=== PATIENT | male | born 1955 | race Caucasian/White ===

== ENCOUNTER 2019-11-14 12:30 | Outpatient (RCR) | payer OTHER, SELFPAY | END 2019-11-14 23:59 | disposition home or self-care (01) | LOC: ANHAUDIO 12:30 | PROVIDERS: PCP Family Medicine; Visit Provider Family Medicine | DX: Z46.1 Encounter for fitting and adjustment of hearing aid (principal) | CPT/HCPCS: 99199 ==

== ENCOUNTER 2020-04-24 07:06 | Outpatient (CLI) | payer MEDICARE, MEDICAID, SELFPAY ==
--- NOTE | ~2020-04-24 | MR_ITS ---
EXAMINATION: MR lumbar spine wo con DATE: 04/24/2020 08:17 INDICATION: Lumbar radiculopathy and chronic low back pain. TECHNIQUE: Magnetic resonance imaging (MRI) of the lumbar spine was performed without intravenous con trast. Sequences included sagittal T2-weighted FSE, sagittal T2-weighted FS FSE, sagittal T1-weighted FSE, and axial T2-weighted FSE. COMPARISON: None FINDINGS: Alignment is normal. Lumbar vertebral body heights are normal. Chronic mild anterior wedging at T11 a nd minimal anterior wedging at T12. Fibrofatty degenerative endplate changes along the anterior infer ior endplate of T11. Mild fibrovascular degenerative endplate changes along the anterior inferior end plate of L1. Marrow signal is otherwise normal. Slight disc desiccation and mild disc height loss at T11-T12 and minimal disc height loss at L1-L2, L2-L3, L3-L4 and L5-S1. The conus medullaris terminate s at L1. There is normal signal in the caudal spinal cord. Paravertebral soft tissues are unremarkabl e. The following disc levels are specifically discussed: L1-L2: Disc is mildly bulging with superimposed annular fissure and left paracentral disc extrusion w ith disc material extending up to 3 mm cephalad to the level of the inferior endplate of L1. There is mild bilateral facet joint osteoarthritis. There is no neural foraminal stenosis. There is mild cent ral canal stenosis. L2-L3: Disc is mildly bulging with annular fissure and small central disc extrusion with disc materia l extending a couple millimeters cephalad and caudal to the level of the endplates. There is mild lópez ateral facet joint osteoarthritis. There is mild right and minimal left neural foraminal stenosis. Th ere is mild central canal stenosis. L3-L4: Disc is mildly bulging with superimposed annular fissure and small disc extrusion with disc ma terial extending couple millimeter caudal to the level of the superior endplate of L4. There is mild bilateral facet joint osteoarthritis. There is mild bilateral neural foraminal stenosis. There is mil d central canal stenosis. L4-L5: Disc is mildly bulging. There is mild right and mild to moderate left facet joint osteoarthrit is. There is mild right and mild to moderate left neural foraminal stenosis. There is mild central ca nal stenosis. L5-S1: Annular fissure and broad-based disc extrusion extending from subarticular zone to subarticula r zone with disc material extending couple millimeter caudal to the level of the superior endplate of S1. There is mild bilateral facet joint osteoarthritis. There is mild bilateral neural foraminal ila nosis. There is no central canal stenosis. IMPRESSION: 1. No significant interval change in mild lumbar spondylosis. Reviewed, dictated and finalized at location A.
== END 2020-04-24 07:07 | disposition home or self-care (01) ==
LOC: CHSIMG 07:11
PROVIDERS: PCP Family Medicine; Visit Provider Nurse Practitioner Adult Health
DX: M54.5 Low back pain (principal)
CPT/HCPCS: 72148

== ENCOUNTER 2020-09-01 14:04 | Outpatient (CLI) | payer MEDICARE, SELFPAY ==
[2020-09-01 14:17] LABS: Basophils Absolute Auto 0.07 K/mm3 (0.00-0.10); Basophils Percent Auto 0.6 % (0.0-1.0); Eosinophils Absolute Auto 0.31 K/mm3 (0.02-0.50); Eosinophils Percent Auto 2.9 % (1.0-6.0); Hematocrit 39.8 % (37.0-46.0); Hemoglobin 13.4 g/dL (12.4-15.3); Immature Granulocyte Absolute 0.06 K/mm3 (0.00-0.00); Immature Granulocyte Percent A 0.6 % (0.0-0.0); Lymphocytes Absolute Auto 2.57 K/mm3 (1.10-4.50); Lymphocytes Percent Auto 23.7 % (18.0-42.0); Mean Corpuscular HGB Conc 33.7 g/dL (32.0-36.0); Mean Corpuscular Hemoglobin 31.6 pg (27.0-31.0); Mean Corpuscular Volume 93.9 fL (78.0-102.0); Mean Platelet Volume 8.9 fl (8.7-11.0); Monocytes Absolute Auto 0.75 K/mm3 (0.10-0.90); Monocytes Percent Auto 6.9 % (2.0-11.0); Neutrophils Absolute Auto 7.1 K/mm3 (1.7-7.2); Neutrophils Percent Auto 65.3 % (50.0-70.0); Platelet Count Result 363 K/mm3 (150-420); Red Blood Count 4.24 M/mm3 (4.70-6.10); Red Cell Distribution Width 13.5 % (11.6-14.4); White Blood Count 10.9 K/mm3 (4.8-10.8)
[2020-09-01 14:38] LABS: Alanine Aminotransferase 33 U/L (16-63); Albumin Level 4.1 g/dL (3.4-5.0); Alkaline Phosphatase 132 U/L (46-116); Anion Gap 11 mmol/L (8-16); Aspartate Amino Transferase 21 U/L (15-37); Bilirubin,Total 0.5 mg/dL (0.00-1.00); Blood Urea Nitrogen 22 mg/dL (7-18); Calcium 9.8 mg/dL (8.5-10.1); Carbon Dioxide 26 mmol/L (21-32); Chloride 103 mmol/L (98-108); Cholesterol 128 mg/dL (0-200); Estimated Glomerular Filt Rate > 60; Glucose 131 mg/dL (70-99); HDL Direct 42 mg/dL (40-60); LDL Cholesterol Calculated 58 mg/dL (<130); Osmolality Calculated 295 mOsm/kg (285-295); Sodium 140 mmol/L (136-145); Triglycerides 140 mg/dL (0-150)
== END 2020-09-01 14:05 | disposition home or self-care (01) ==
LOC: CHSLAB 14:07
PROVIDERS: PCP Family Medicine; Visit Provider Family Medicine
DX: E78.5 Hyperlipidemia, unspecified (principal); I10 Essential (primary) hypertension
CPT/HCPCS: 36415; 80053; 80061; 85025

== ENCOUNTER 2021-11-01 14:33 | Outpatient (NON) | payer MEDICARE, SELFPAY | END 2021-11-01 14:34 | disposition home or self-care (01) | LOC: CHSLAB 14:37 | PROVIDERS: Visit Provider Family Medicine | DX: L82.1 Other seborrheic keratosis (principal) | CPT/HCPCS: 88305 ==

== ENCOUNTER 2021-11-08 15:18 | Outpatient (CLI) | payer MEDICARE, SELFPAY ==
[2021-11-08 15:38] LABS: Hematocrit 37.3 % (37.0-46.0); Hemoglobin 12.6 g/dL (12.4-15.3); Mean Corpuscular HGB Conc 33.8 g/dL (32.0-36.0); Mean Corpuscular Hemoglobin 32.5 pg (27.0-31.0); Mean Corpuscular Volume 96.1 fL (78.0-102.0); Mean Platelet Volume 9.1 fl (8.7-11.0); Platelet Count Result 341 K/mm3 (150-420); Red Blood Count 3.88 M/mm3 (4.70-6.10); Red Cell Distribution Width 13.8 % (11.6-14.4); White Blood Count 11.7 K/mm3 (4.8-10.8)
[2021-11-08 16:26] LABS: Alanine Aminotransferase 30 U/L (16-63); Albumin Level 3.9 g/dL (3.4-5.0); Alkaline Phosphatase 128 U/L (46-116); Anion Gap 6 mmol/L (8-16); Aspartate Amino Transferase 19 U/L (15-37); Bilirubin,Total 0.6 mg/dL (0.00-1.00); Blood Urea Nitrogen 17 mg/dL (7-18); Calcium 8.6 mg/dL (8.5-10.1); Carbon Dioxide 28 mmol/L (21-32); Chloride 103 mmol/L (98-108); Estimated Glomerular Filt Rate 54; Glucose 107 mg/dL (70-99); Osmolality Calculated 285 mOsm/kg (285-295); Potassium 4.3 mmol/L (3.5-5.1); Sodium 137 mmol/L (136-145); Total Protein 7.2 g/dL (6.4-8.2)
== END 2021-11-08 15:19 | disposition home or self-care (01) ==
PROVIDERS: PCP Family Medicine; Visit Provider Family Medicine
DX: R42 Dizziness and giddiness (principal); E11.9 Type 2 diabetes mellitus without complications
CPT/HCPCS: 36415; 80053; 84443; 85027

== ENCOUNTER 2021-11-12 09:23 | Outpatient (CLI) | payer MEDICARE, MEDICAID, SELFPAY ==
--- NOTE | ~2021-11-12 | MR_ITS ---
EXAMINATION: MR brain/brain stem wo con DATE: 11/12/2021 10:03 INDICATION: Disequilibrium. TECHNIQUE: Magnetic resonance imaging (MRI) of the brain and brainstem was performed without intraven ous contrast. COMPARISON: None. FINDINGS: There is an old infarct in right frontal lobe. There is an old infarct in the right caudate nucleus. There are scattered areas of nonspecific increased T2-weighted signal intensity in the cere bral white matter and smiley. There is no intracranial hemorrhage, acute infarction, or abnormal intrac ranial mass lesion. The ventricles are normal in size. There is mild mucosal thickening in the parana lucy sinuses. There are likely changes of ocular lens replacement surgeries. The mastoid air cells are normal. IMPRESSION: 1. 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 2. Moderate nonspecific cerebral white matter disease and pontine disease, which likely represents ch ronic small vessel ischemic disease. Reviewed, dictated and finalized at location A. IMPRESSION: 1. 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 2. Moderate nonspecific cerebral white matter disease and pontine disease, whic h likely represents chronic small vessel ischemic disease.
== END 2021-11-12 09:24 | disposition home or self-care (01) ==
LOC: CHSIMG 09:24
PROVIDERS: PCP Family Medicine; Visit Provider Family Medicine
DX: R42 Dizziness and giddiness (principal)
CPT/HCPCS: 70551

== ENCOUNTER 2021-12-01 12:29 | Outpatient (CLI) | payer MEDICARE, MEDICAID, SELFPAY ==
--- NOTE | ~2021-12-01 | US_ITS ---
EXAMINATION: US carotid duplex BI DATE: 12/01/2021 13:42 INDICATION: Cerebral infarction with disequilibrium. Carotid atherosclerosis. TECHNIQUE: Grayscale, color Doppler, and pulsed Doppler images of the cervical carotid arteries were obtained. The degree of vessel stenosis is placed in one of the following categories: normal, <50%, 5 0-69%, >=70% but less than near-occlusion, near-occlusion, or total occlusion. Note that percent sten osis relative to normal distal artery lumen diameter is indirectly measured from velocity measurement s as described by Singh, et al. Radiology 2003; 229:340-346. COMPARISON: Chest CT dated 05/24/2017 FINDINGS: RIGHT: The right common carotid artery (CCA) peak systolic velocity (PSV) is 77 cm/s. The right internal car otid artery (ICA) PSV is 102 cm/s. The right ICA end-diastolic velocity (EDV) is 34 cm/s. The right I CA/CCA PSV ratio is 1.3. Grayscale and color Doppler images yield an estimate of <50% diameter reduct ion from plaque in the ICA. The external carotid artery (ECA) PSV is 124 cm/s. There is antegrade suni w in the right vertebral artery. 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 LEFT: The left CCA PSV is 84 cm/s. The left ICA PSV is 91 cm/s. The left ICA EDV is 28 cm/s. The left ICA/C CA PSV ratio is 1.1. Grayscale and color Doppler images yield an estimate of <50% diameter reduction from plaque in the ICA. The ECA PSV is 85 cm/s. There is antegrade flow in the left vertebral artery. IMPRESSION: 1. <50% stenosis in the right internal carotid artery. 2. <50% stenosis in the left internal carotid artery. 3. Patent right common carotid right subclavian artery bypass graft. Reviewed, dictated and finalized at location A.
== END 2021-12-01 12:30 | disposition home or self-care (01) ==
LOC: CHSIMG 12:31
PROVIDERS: PCP Family Medicine; Visit Provider Family Medicine
DX: I63.9 Cerebral infarction, unspecified (principal)
CPT/HCPCS: 93880

== ENCOUNTER 2022-01-06 13:08 | Outpatient (CLI) | payer MEDICARE, MEDICAID, SELFPAY ==
--- NOTE | 2022-01-06 13:22 | ECHO_ITS ---
Patient Info Name: Antolin Swartz Age: 66 years : 1955 Gender: Male Ht: 66 in Wt: 165 lbs BSA: 1.88 m2 HR: 79 bpm BP: 135 / 62 mmHg Heart Rhythm: Sinus Rhythm Technical Quality: Fair Exam Date: 01/06/2022 2:09 PM Exam Location: [facility] Patient Status: Outpatient Admit Date: 01/06/2022 Staff Ordering Physician: Zia Hensley DO Publication Distributor: Emily Cruz RDCS Attending Provider: Zia Hensley DO Referring Physician: Ayden CRAVEN; Exam Type: CA echo doppler color flow Study Info Indications - cerebral infarctin.unspecified Complete two-dimensional, color flow and Doppler transthoracic echocardiogram is performed. Summary 1. Complete two-dimensional, color flow and Doppler transthoracic echocardiogram is performed. 2. Left ventricular chamber dimension is normal. 3. Left ventricular systolic function is normal, estimated at 65-70%. 4. The left ventricular diastolic function is grade I diastolic dysfunction. 5. E/e' 11 is mildly elevated. 6. There is trace tricuspid valve regurgitation. 7. No pulmonary hypertension, estimated pulmonary arterial systolic pressure is 29 mmHg. 8. There is mild pulmonic regurgitation. Left Ventricle E/e' 11 is mildly elevated. Left ventricular chamber dimension is normal. Left ventricular systolic function is normal, estimated at 65-70%. The left ventricular diastolic function is grade I diastolic dysfunction. Right Ventricle Right ventricular systolic function is normal and with normal TAPSE 2.4 cm. Right ventricular chamber dimension is normal. Left Atria Left atrial chamber dimension is normal. Right Atria Right atrial chamber dimension is normal. Aortic Valve The aortic valve is trileaflet. There is no aortic valve stenosis. There is no aortic valve regurgitation. Pulmonic Valve There is mild pulmonic regurgitation. Mitral Valve There is no mitral valve stenosis. There is no mitral valve regurgitation. Tricuspid Valve There is trace tricuspid valve regurgitation. No pulmonary hypertension, estimated pulmonary arterial systolic pressure is 29 mmHg. Pericardium/Pleural There is no pericardial effusion. Inferior Vena Cava Normal inferior vena cava with >50% collapse upon inspiration consistent with normal right atrial pressure, 5 mmHg. Aorta The aortic root size at the sinus of Valsalva is normal. Left Ventricular Outflow Tract Name Value Normal LVOT 2D LVOT Diameter 2.0 cm LVOT Doppler LVOT Peak Velocity 93 cm/s LVOT Peak Gradient 3 mmHg LVOT Mean Gradient 2 mmHg LVOT VTI 18 cm LVOT VTI/AV VTI Ratio 0.9 LVOT Stroke Volume 59 ml Pulmonic Valve Name Value Normal RVOT Doppler RV
== END 2022-01-06 13:09 | disposition home or self-care (01) ==
LOC: CHSIMG 13:11
PROVIDERS: PCP Family Medicine; Visit Provider Family Medicine
DX: I63.9 Cerebral infarction, unspecified (principal)
CPT/HCPCS: 93306

== ENCOUNTER 2022-03-24 13:47 | Outpatient (CLI) | payer MEDICARE, MEDICAID, SELFPAY ==
--- NOTE | ~2022-03-24 | CT_ITS ---
EXAMINATION: CT lung screening DATE: 03/24/2022 14:13 INDICATION: History of nicotine dependence TECHNIQUE: Computed tomography (CT) of the chest was performed without intravenous contrast. The dose -length product was 100.92 mGy-cm. Automated exposure control and iterative reconstruction technique were employed. COMPARISON: None FINDINGS: No significant pleural or pericardial effusion. There is atherosclerosis of the aorta and c oronary arteries. No thoracic lymphadenopathy. Heart size is normal. There are calcified granulomas o f the spleen. There is calcified granuloma of the left lower lobe. No endobronchial lesions. Mild emp hysema. No focal airspace consolidation. No pneumothorax. There is a 2 mm right upper lobe nodule ant eriorly. Moderate thoracic spondylosis. No focal lytic or blastic lesions. IMPRESSION: 1. Lung-RADS category 2: Benign appearance or behavior. Continue annual screening with noncontrast lo w-dose chest CT in 12 months. Reviewed, dictated and finalized at location A. 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 Lung-RADS category 2: Benign appearance or behavior. Continue annual screeni ng with noncontrast low-dose chest CT in 12 months.
== END 2022-03-24 13:48 | disposition home or self-care (01) ==
LOC: CHSIMG 13:49
PROVIDERS: PCP Family Medicine; Visit Provider Family Medicine
DX: Z12.2 Encounter for screening for malignant neoplasm of respiratory organs (principal); Z87.891 Personal history of nicotine dependence; R05.9 Cough, unspecified; R06.02 Shortness of breath
CPT/HCPCS: 71271

== ENCOUNTER 2022-06-09 09:45 | Outpatient (CLI) | payer MEDICARE, SELFPAY ==
[2022-06-09 10:38] LABS: Alanine Aminotransferase 31 U/L (16-63); Albumin Level 3.7 g/dL (3.4-5.0); Alkaline Phosphatase 132 U/L (46-116); Anion Gap 11 mmol/L (8-16); Aspartate Amino Transferase 22 U/L (15-37); Bilirubin,Total 0.5 mg/dL (0.00-1.00); Blood Urea Nitrogen 17 mg/dL (7-18); Carbon Dioxide 24 mmol/L (21-32); Chloride 106 mmol/L (98-108); Cholesterol 101 mg/dL (0-200); Estimated Glomerular Filt Rate > 60; Glucose 128 mg/dL (70-99); HDL Direct 43 mg/dL (40-60); LDL Cholesterol Calculated 35 mg/dL (<130); Osmolality Calculated 295 mOsm/kg (285-295); Potassium 4.7 mmol/L (3.5-5.1); Sodium 141 mmol/L (136-145); Total Protein 6.9 g/dL (6.4-8.2); Triglycerides 114 mg/dL (0-150)
== END 2022-06-09 09:46 | disposition home or self-care (01) ==
LOC: CHSLAB 09:47
PROVIDERS: PCP Family Medicine; Visit Provider Internal Medicine Cardiovascular Disease
DX: E78.5 Hyperlipidemia, unspecified (principal)
CPT/HCPCS: 36415; 80053; 80061

== ENCOUNTER 2022-08-10 15:16 | Outpatient (RCR) | payer OTHER, SELFPAY ==
--- NOTE | 2022-08-10 16:19 | PTOPEVAL1 ---
Assessment and note entered by JT File, PT Evaluation Information Assessment Status Evaluation Diagnosis R shoulder pain, L shoulder pain Onset 08/04/22 Subjective Information patient reports he has RTC issues with the R shoulder. he reports he will notice it is painful and weak with increased use. he reports he has had no recent xray or MRI of the R shoulder. he reports he has increased pain in the R shoulder with lifting anyweight. he reports he has been working out in the yard today, but his shoulder is not too bad currently. he reports he has been having issues with the R shoulder for 4-5 years. he reports as of lately he has also has pain in the L shoulder with activities. Reported Pain Level Pain Score 0: Self Report Assessment PT Clinical Summary mr. vogt is a 67 yo man who presents to skilled PT for evaluation and treatment of bilateral shoulder pain. he presents today with signs and symptoms of bilateral RTC syndrome. he displays poor strength, poor rom, pain, and deficits in posture/postural awareness. he would do well to continue skilled PT to address his objective/ functional deficits and progress towards a return to his prior level functional activity performance /quality of life. Plan of Care Interventions Electrical Stimulation,Hot Pack/Cold Pack,Manual Therapy,Neuro Re-education,Patient/Caregiver Educati,Therapeutic Activities,Therapeutic Exercise,Ultrasound PT Services Indicated Yes Treatment Frequency and 3x weekly for 12 visits Duration These treatments will address the objective and functional deficits as defined above. The patient will be advanced safely and appropriately in order for the patient to progress towards his/her prior level of function. Additional exercises will be introduced and as well as a comprehensive home exercise program upon discharge, if needed, ?to ensure carryover of functional gains achieved in the clinic. This treatment plan has been reviewed and agreement upon by the patient.
--- NOTE | 2022-08-10 16:19 | OPREHPOC ---
Outpatient Therapy Plan of Care This is a Multidisciplinary Plan of Care that may contain components documented by all disciplines (PT, OT, and ST.) PT Problem 1 PT Problem #1 Knowledge Deficit PT Goal 1 Goal 1. independent and compliant with HEP to improve tolerance for continued skilled PT and exercises Target Visit 6 PT Problem 2 PT Problem #2 Pain PT Goal 1 Goal 1. decrease pain at worst in the bilateral shoulders to 4/10 or less Target Visit 12 PT Problem 3 PT Problem #3 Impaired Range of Motion PT Goal 1 Goal 1. improve bilateral shoulder arom flexion to 155 degrees 2. improve bilateral shoulder arom ER to 75 degrees or better 3. improve bilateral shoulder arom IR to 60 degrees or better Target Visit 12 PT Problem 4 PT Problem #4 Impaired Strength PT Goal 1 Goal 1. improve bilateral shoulder ER strength to 4/5 or better 2. improve remaining bilateral shoulder strength to 4+/5 or better Target Visit 12 PT Problem 5 PT Problem #5 Impaired Functional Mobil PT Goal 1 Goal 1. patient to achieve functional IR reach behind back to the lumbar spine with the R hand 2. patient to work on cars and yard for 2 hours at a time without limitation or rest 3. quick dash to display less than 20% functional deficits` Target Visit 12
--- NOTE | 2022-12-05 16:36 | PCPTNOTE ---
patient discharged due to completion of POC
== END 2022-08-24 23:59 | disposition home or self-care (01) ==
LOC: CHSPT 15:16
PROVIDERS: PCP Family Medicine; Visit Provider Family Medicine
DX: M25.811 Other specified joint disorders, right shoulder (principal)
CPT/HCPCS: 97014; 97110; 97161; G0283

== ENCOUNTER 2022-09-04 09:43 | Outpatient (CLI) | payer OTHER, SELFPAY ==
[2022-09-04 10:07] LABS: Basophils Absolute Auto 0.07 K/mm3 (0.00-0.10); Basophils Percent Auto 0.8 % (0.0-1.0); Eosinophils Absolute Auto 0.31 K/mm3 (0.02-0.50); Eosinophils Percent Auto 3.3 % (1.0-6.0); Hematocrit 37.4 % (37.0-46.0); Hemoglobin 12.9 g/dL (12.4-15.3); Immature Granulocyte Absolute 0.03 K/mm3 (0.00-0.00); Immature Granulocyte Percent A 0.3 % (0.0-0.0); Lymphocytes Percent Auto 19.4 % (18.0-42.0); Mean Corpuscular HGB Conc 34.5 g/dL (32.0-36.0); Mean Corpuscular Hemoglobin 33.2 pg (27.0-31.0); Mean Corpuscular Volume 96.4 fL (78.0-102.0); Mean Platelet Volume 8.7 fl (8.7-11.0); Monocytes Absolute Auto 0.74 K/mm3 (0.10-0.90); Neutrophils Absolute Auto 6.4 K/mm3 (1.7-7.2); Neutrophils Percent Auto 68.2 % (50.0-70.0); Platelet Count Result 341 K/mm3 (150-420); Red Blood Count 3.88 M/mm3 (4.70-6.10); Red Cell Distribution Width 14.3 % (11.6-14.4); White Blood Count 9.3 K/mm3 (4.8-10.8)
[2022-09-04 10:49] LABS: Alanine Aminotransferase 37 U/L (16-63); Albumin Level 3.5 g/dL (3.4-5.0); Alkaline Phosphatase 128 U/L (46-116); Anion Gap 11 mmol/L (8-16); Aspartate Amino Transferase 23 U/L (15-37); Bilirubin,Total 0.3 mg/dL (0.00-1.00); Blood Urea Nitrogen 19 mg/dL (7-18); Calcium 8.6 mg/dL (8.5-10.1); Carbon Dioxide 21 mmol/L (21-32); Chloride 105 mmol/L (98-108); Estimated Glomerular Filt Rate 58; Glucose 114 mg/dL (70-99); Lipase 30 U/L (16-77); Osmolality Calculated 287 mOsm/kg (285-295); Potassium 4.6 mmol/L (3.5-5.1); Sodium 137 mmol/L (136-145); Total Protein 6.3 g/dL (6.4-8.2)
[2022-09-04 10:51] LABS: Thyroid Stimulating Hormone Reflex 1.67 u/IU/mL (0.36-3.74)
[2022-09-04 10:52] LABS: CRP < 0.5 mg/dL (0.0-0.9)
== END 2022-09-04 09:44 | disposition home or self-care (01) ==
LOC: CHSLAB 09:46
PROVIDERS: PCP Family Medicine; Visit Provider Family Medicine
DX: E11.9 Type 2 diabetes mellitus without complications (principal); R10.9 Unspecified abdominal pain; K52.9 Noninfective gastroenteritis and colitis, unspecified
CPT/HCPCS: 36415; 80053; 83690; 84443; 85025; 86140

== ENCOUNTER 2022-09-05 09:25 | Outpatient (CLI) | payer OTHER, SELFPAY ==
[2022-09-05 09:51] LABS: Occult Blood Negative (Negative)
[2022-09-09 06:53] LABS: Neutral Fat, Stool Abnormal (Normal)
[2022-09-13 21:27] LABS: Pancreatic Elastase, Stool 404 mcg/g
[2022-09-14 22:43] LABS: Calprotectin, Stool 54 mcg/g
== END 2022-09-05 09:26 | disposition home or self-care (01) ==
LOC: CHSLAB 09:28
PROVIDERS: PCP Family Medicine; Visit Provider Family Medicine
DX: K52.9 Noninfective gastroenteritis and colitis, unspecified (principal)
CPT/HCPCS: 82272; 82438; 82653; 82705; 83993; 84302; 84311; 87045; 87427; 87449

== ENCOUNTER 2023-03-16 10:18 | Emergency (ER) | payer OTHER, SELFPAY ==
--- NOTE | ~2023-03-16 | XR_ITS ---
EXAMINATION: XR ribs BI 3V w CXR 2V INDICATION: Chest pain TECHNIQUE: PA and lateral views of the chest and 3 views of the bilateral ribs were obtained. COMPARISON: 03/02/2016 FINDINGS: The lungs are free of acute opacities. No pleural effusion or pneumothorax. The cardiomedia stinal silhouette is normal. There is advanced right and moderate left shoulder osteoarthritis. There is moderate thoracic spondylosis. There are acute posterior fractures of the left fourth and fifth r ibs. There is an acute anterolateral fracture of the left ninth rib. IMPRESSION: 1. Acute left rib fractures. 2. No acute cardiopulmonary abnormality. Reviewed, dictated and finalized at location B. 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
[2023-03-16 10:54] VITALS: BP 153/78; PULSE 86; RESP 18; TEMP 36.4; O2SAT 98
--- NOTE | 2023-03-16 11:51 | ECG_ITS ---
Measurements Intervals [place] Rate: 75 P: 45 AL: 151 QRS: -1 QRSD: 102 T: 48 QT: 364 QTc: 409 Interpretive Statements SINUS RHYTHM POOR R-WAVE PROGRESSION/CONSIDER PREVIOUS ANTERIOR INFARCTION ABNORMAL ECG NO PREVIOUS ECG AVAILABLE FOR COMPARISON Electronically Signed On 03-16-2023 15:39:03 HYDROCRANE OPERATOR by Raf Sanchez M.D.
[2023-03-16 12:40] LABS: Basophils Absolute Auto 0.1 K/mm3 (0.0-0.1); Basophils Percent Auto 0.3 % (0.2-1.2); Eosinophils Absolute Auto 0.1 K/mm3 (0-0.3); Eosinophils Percent Auto 0.3 % (0-4.4); Hematocrit 44.3 % (42.0-52.0); Hemoglobin 14.7 g/dL (14.0-18.0); Immature Granulocyte Absolute 0.09 K/mm3 (0.00-0.031); Immature Granulocyte Percent A 0.5 % (0-0.5); Lymphocytes Absolute Auto 1.99 K/mm3 (0.9-3.2); Lymphocytes Percent Auto 11.5 % (18.3-44.2); Mean Corpuscular HGB Conc 33.2 g/dl (32-36); Mean Corpuscular Hemoglobin 31.6 pg (26-34); Mean Corpuscular Volume 95.3 fl (80-100); Mean Platelet Volume 9.2 fl (7.4-10.4); Monocytes Absolute Auto 1.2 K/mm3 (0.1-0.6); Monocytes Percent Auto 6.7 % (2.6-8.5); Neutrophils Absolute Auto 13.9 K/mm3 (1.3-6.7); Neutrophils Percent Auto 80.7 % (45.5-73.1); Platelet Count Result 350 k/mm3 (150-375); Red Blood Count 4.65 M/mm3 (4.6-6.20); Red Cell Distribution Width 14.6 % (11.5-14.5); White Blood Count 17.3 K/mm3 (4.5-10.0)
[2023-03-16 12:59] LABS: Alanine Aminotransferase 24 U/L (6-50); Albumin Level 4.6 g/dL (3.5-5.1); Alkaline Phosphatase 132 U/L (38-126); Anion Gap 8 mmol/L (8-16); Aspartate Amino Transferase 40 U/L (17-59); Bilirubin,Total 0.8 mg/dL (0.2-1.3); Blood Urea Nitrogen 12 mg/dL (9-20); Calcium 9.7 mg/dL (8.4-10.2); Carbon Dioxide 24 mmol/L (22-30); Chloride 106 mmol/L (98-107); Estimated CRCL calculation 63 ml/min; Estimated Glomerular Filt Rate > 60; Glucose 144 mg/dL (65-110); Sodium 138 mmol/L (137-145)
[2023-03-16 13:02] LABS: Magnesium 1.9 mg/dL (1.6-2.3); Troponin I < 0.012 ng/mL (0.000-0.034)
--- NOTE | 2023-03-16 13:14 | ED.GENADULT ---
HPI - General Adult General Chief complaint: Unspecified Stated complaint: left side pain after fall Time Seen by Provider: 03/16/23 12:07 Source: patient Limitations: no limitations History of Present Illness HPI narrative: Patient is a 67-year-old male presents to the emergency department accompanied by significant other for a syncopal episode and left rib pain. Patient states yesterday morning ever sitting together drinking coffee on a Yieldex chair 1 patient suddenly became red in the face and diaphoretic and then had a syncopal episode in which she fell off the chair and hit the back top left side of his head in addition to his left ribs and is now having left rib pain in the lateral aspect and anterior aspect of the mid to inferior levels that hurts to take a big deep breath in and was not having this pain preceding the fall. Patient admits to small amount of blood loss from the scrape to his head for which the put Neosporin on. Patient denies numbness, weakness, recent illness, new or change medications, chest pain, difficulty breathing, abdominal pain, nausea, vomiting, diarrhea, melena, hematochezia, fever, cough, palpitations, history of abnormal heart rhythms, back pain. Patient has tried Tylenol for his discomfort. Patient admits to history of syncopal episodes in the past without any formal diagnosis but date notably usually comes around with severe COPD exacerbations and coughing fits where as he was not having this at the time he passed out this time. Patient was on the for for approximately 10 seconds and immediately returned to baseline without any seizure activity reported and no history of seizures. Related Data Home Medications Medication Instructions Recorded Confirmed aspirin 81 mg tablet,delayed 81 mg PO DAILY 06/06/21 12/11/22 release (Adult Aspirin Regimen) brimonidine 0.2 % eye drops drp ophthalmic (eye) 09/04/22 12/11/22 latanoprost 0.005 % eye drops drp ophthalmic (eye) 09/04/22 12/11/22 Allergies Allergy/AdvReac Type Severity Reaction Status Date / Time lisinopril AdvReac Severe angioedema Verified 12/11/22 13:29 NSAIDS (Non-Steroidal AdvReac Severe Nausea and Verified 12/11/22 13:29 Anti-Inflamma Vomiting Review of Systems Review of Systems: A 10 system review of systems was completed on the patient and is negative except for what is stated in the HPI. Nursing and ancillary documentation was reviewed. [facility] Past Medical History Medical History Chronic low back pain Cigarette nicotine dependence COPD (chronic obstructive pulmonary disease) Erectile dysfunction MILIND (generalized anxiety disorder) GI bleed Hyperlipidemia Hypertension PVD (peripheral vascular disease) Restless leg syndrome Surgical History Surgical History H/O endarterectomy Family History Family History Other Diabetes mellitus Family history of arthritis Hypertension Social History Social History Social History: Hx of incarceration Smoking packs per day: 1 Smoking cigarettes per day: 20.0 Years smoked: 50 Smoking pack-years: 50.00 Smoking status: Current every day smoker Tobacco type: cigarettes Alcohol intake: never Substance use: never Substance use type: marijuana Living arrangements: with family Occupation/Education: retired Gender identity (if verbalized by the patient): Male Comments At time of signature, I have reviewed and agree with nursing past medical, surgical, social and family history unless otherwise noted. Please see the nursing chart for further information. There is no relevant family history pertinent to the presenting complaint. Exam Narrative: CONST: No acute distress. Well nourished. HENMT: Head is normocephalic.
[2023-03-16] MEDS: MORPHINE SULFATE (*CRX) 4 MG/ML INJ IV PUSH (13:37)
[2023-03-16] MEDS: LIDOCAINE 5% PATCH 1 PATCH TRANSDERM (13:37)
[2023-03-16] MEDS: SODIUM CHLORIDE 0.9% IV 500 ML 999 ML IV CONT (13:37)
[2023-03-16 15:16] VITALS: BP 180/77; PULSE 77; RESP 20; TEMP 36.4; O2SAT 100
== END 2023-03-16 15:18 | disposition home or self-care (01) ==
PROVIDERS: Emergency Medicine; Emergency Provider Student in an Organized Health Care Education/Training Program; PCP Family Medicine
DX: R55 Syncope and collapse (principal); S22.42XA Multiple fractures of ribs, left side, initial encounter for closed fracture; J44.9 Chronic obstructive pulmonary disease, unspecified; I10 Essential (primary) hypertension; I73.9 Peripheral vascular disease, unspecified; E78.5 Hyperlipidemia, unspecified; G25.81 Restless legs syndrome; F17.210 Nicotine dependence, cigarettes, uncomplicated; R94.31 Abnormal electrocardiogram [ECG] [EKG]; W07.XXXA Fall from chair, initial encounter
CPT/HCPCS: 36415; 71046; 71110; 80053; 83735; 84443; 84484; 85025; 93005; 96361; 96374; 99284; A9270; J2270; J7040

== ENCOUNTER 2023-03-20 13:35 | Outpatient (CLI) | payer OTHER, SELFPAY ==
--- NOTE | ~2023-03-20 | CT_ITS ---
EXAMINATION: CT chest high resolution [place] DATE: 03/20/2023 14:28 INDICATION: Bilateral rib pain. Fell off of a tall stool. TECHNIQUE: Computed tomography (CT) of the chest was performed without intravenous contrast. Automate d exposure control and iterative reconstruction technique were employed. Exam dose: 216.42 mGy-cm to rosa exam DLP. COMPARISON: March 16, 2023 bilateral ribs, PA and lateral chest FINDINGS: Normal heart size. No pericardial effusion. There is thoracic aortic and great vessel and c oronary artery calcification. No thoracic aortic aneurysm. No hilar or mediastinal mass lesion or lymphadenopathy. There is basilar left lower lobe and lingular atelectasis and small left pleural effusion. No pneumot horax. The right lung is clear of infiltrate or consolidation. No right pleural effusion. Small sliding hiatal hernia. Normal morphology of the adrenal glands. Partially displaced posterior left fifth, sixth and seventh rib fractures, nondisplaced posterior lef t eighth and ninth rib fractures. These are all very recent, without evidence of callus formation yet Osteophytic change at the glenohumeral joints. Degenerative changes of the lower cervical and thoraci c spine. IMPRESSION: Posterior left fifth through ninth rib fractures with small left pleural effusion, left basilar lower lobe and lingular atelectasis; no pneumothorax Reviewed, dictated and finalized at Location A. Reviewed, dictated and finalized at location L. 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
== END 2023-03-20 13:36 | disposition home or self-care (01) ==
PROVIDERS: PCP Family Medicine; Visit Provider Family Medicine
DX: R07.81 Pleurodynia (principal); S22.42XA Multiple fractures of ribs, left side, initial encounter for closed fracture; J90 Pleural effusion, not elsewhere classified; J98.11 Atelectasis
CPT/HCPCS: 71250

== ENCOUNTER 2023-06-29 13:04 | Outpatient (CLI) | payer OTHER, SELFPAY ==
[2023-06-29 14:18] LABS: Uric Acid 8.1 mg/dL (3.5-7.2)
== END 2023-06-29 13:05 | disposition home or self-care (01) ==
LOC: CHSLAB 13:05
PROVIDERS: PCP Family Medicine; Visit Provider Family Medicine
DX: M10.9 Gout, unspecified (principal)
CPT/HCPCS: 36415; 84550

== ENCOUNTER 2023-09-13 13:54 | Outpatient (CLI) | payer OTHER, SELFPAY ==
[2023-09-17 16:48] LABS: H pylori, Urea Breath NOT DETECTED (NOT DETECTED)
== END 2023-09-13 13:55 | disposition home or self-care (01) ==
LOC: CHSLAB 13:56
PROVIDERS: PCP Family Medicine; Visit Provider Family Medicine
DX: K21.9 Gastro-esophageal reflux disease without esophagitis (principal)
CPT/HCPCS: 83013

== ENCOUNTER 2024-03-26 18:20 | Emergency (ER) | payer OTHER, SELFPAY ==
[2024-03-26] VITALS (32 sets, daily range): BP systolic 112–189; BP diastolic 76–88; PULSE 80–111; RESP 12–33; TEMP 37.2; O2SAT 92–100
--- NOTE | ~2024-03-26 | XR_ITS ---
EXAMINATION: XR chest 1V portable DATE: 03/26/2024 19:35 INDICATION: Shortness of breath. TECHNIQUE: A single frontal view of the chest was obtained. COMPARISON: Chest 2 views 03/12/2023, chest CT 03/20/2023 FINDINGS: A calcified left lung nodule and calcified left hilar lymph nodes are consistent with old g ranulomatous disease. No pleural effusion or pneumothorax. The heart size is normal. There are promin ent pericardial fat pads. IMPRESSION: 1. No acute cardiopulmonary disease. Reviewed, dictated and finalized at location A. DING WHEEL DRESSER
--- NOTE | ~2024-03-26 | CT_ITS ---
EXAMINATION: CTA chest PE protocol DATE: 03/26/2024 20:38 INDICATION: Shortness of breath. TECHNIQUE: Computed tomography angiography (CTA) of the chest was performed with 100 mL Omnipaque-350 intravenous contrast timed to evaluate the pulmonary arteries. Coronal maximum intensity projection 3D-reconstructions were created by the technologist. Automated exposure control and iterative reconst ruction technique were employed. The dose-length product was 330.84 mGy-cm. COMPARISON: Chest CT 03/20/2023 FINDINGS: There is mild emphysema. There are patchy airspace and groundglass opacities in right lower lobe and right middle lobe. A calcified left lung nodule and calcified left hilar lymph nodes are co nsistent with old granulomatous disease. No pleural effusion. The heart size is normal. There are cor onary artery calcifications. There is a trace pericardial effusion. There is no pulmonary embolus. Th ere is a small sliding hiatal hernia. The gallbladder is distended, likely secondary to fasting. Calc ifications in the liver and spleen are consistent with old granulomatous disease. There is mild bilat eral gynecomastia. There are multiple old left rib fractures with nonunion. There is severe thoracic and cervical spondylosis. IMPRESSION: 1. Patchy airspace and groundglass opacities in right middle lobe and right lower lobe, consistent wi th pneumonia. 2. No pulmonary embolus. 3. Mild emphysema. Reviewed, dictated and finalized at location A. OR MEDIA PLANNER IMPRESSION: 1. Patchy airspace and groundglass opacities in right middle lobe and right low er lobe, consistent with pneumonia. 2. No pulmonary embolus. 3. Mild emphysema.
--- OUTSIDE RECORDS SUMMARY | 2024-03-26 18:22 | XMS_ITS | Clinical Summary ---
Author Organization [facility] Address [facility] [place] [address] Care Team Providers Care Retail Loss Prevention Investigator Name Role Phone Van Alegre MD Primary Care Provider [phone] Samson Cruz MD Unavailable Allergies No known active allergies Medications amitriptyline 25 MG tablet Take 25 mg by mouth nightly at bedtime. at bedtime. 3 03/07/2018 Active amlodipine 10 MG tablet Take 10 mg by mouth daily. 3 03/07/2018 Active atorvastatin 80 MG tablet Take 80 mg by mouth daily. 3 03/07/2018 Active ATROVENT HFA 17 MCG/ACT inhaler Inhale 2 puffs into the lungs 2 (two) times daily. 3 02/04/2018 Active lisinopril 40 MG tablet Take 40 mg by mouth daily. 3 03/07/2018 Active montelukast 10 MG tablet Take 10 mg by mouth daily. 3 03/07/2018 Active citalopram 40 MG tablet Take 40 mg by mouth daily. 3 03/07/2018 Active sildenafil (VIAGRA) 50 MG tablet Take 50 mg by mouth daily as needed for Erectile Dysfunction. Active aspirin EC (ASPIRIN EC) 81 MG tablet Take 81 mg by mouth daily. Active Umeclidinium [place] (INCRUSE ELLIPTA) 62.5 MCG/INH AEROSOL POWDER, BREATH ACTIVATED Inhale 1 puff into the lungs daily. Active metoprolol tartrate 50 MG tablet Take 50 mg by mouth 2 (two) times daily. Active albuterol sulfate HFA (PROAIR HFA) 108 (90 Base) MCG/ACT inhaler Inhale 1 puff into the lungs every 6 (six) hours as needed for Wheezing. Active Spacer/Aero-Hol ding Chambers (OPTICHAMBER JADE) Misc USE DIRECTED WITH ATROVENT INHALER 2 10/24/2018 Active amitriptyline 50 MG tablet 08/04/2019 Active busPIRone 7.5 MG tablet TAKE 2 TABLETS BY MOUTH EVERY MORNING & TAKE 1 TAB EVERY EVENING FOR 1 WEEK THEN START (15MG) TABS 03/12/2019 Active busPIRone 15 MG tablet 08/03/2019 Active meloxicam 7.5 MG tablet 08/13/2019 Active SPIRIVA HANDIHALER 18 MCG inhalation capsule INHALE CONTENTS OF 1 CAPSULE BY MOUTH EVERY DAY 07/01/2019 Active zafirlukast 20 MG Tab TAKE 1 TABLET BY MOUTH TWICE A DAY 1 HOUR PRIOR OR 2 HOURS AFTER FOOD/MEALS 07/01/2019 Active CILOSTAZOL 100 MG tablet TAKE 1 TABLET BY MOUTH TWICE A DAY 180 tablet 1 09/08/2019 Active Active Problems Problem Noted Date Diagnosed Date S/P insertion of iliac artery stent 10/29/2018 Carotid artery disease without cerebral infarcti on 08/22/2018 Mixed hyperlipidemia 04/22/2018 Benign hypertension 04/22/2018 Pain in both lower extremities 04/22/2018 COPD (chronic obstructive pu lmonary disease) ([facility]) 04/22/2018 PAD (peripheral artery disease) 04/22/2018 Smoker 04/22/2018 Family History Medical History Relation Comments Stent Cardiac Mother Relation Status Comments Father Maternal Grandfather Maternal Grandmother Mother CAD, CVA Paternal Grandfather Alive Paternal Grandmother Social History Tobacco Use Types Packs/Day Years Used Date Smoking Tobacco: Every Day Cigarettes 1 50 Smokeless Tobacco: Never Alcohol Use Standard Drinks/Week Comments Yes 0 (1 standard drink = 0.6 oz pur e alcohol) rare beer; hx of heavy drinker AUDIT-C Answer Date Recorded Frequency of Alcohol Consumption Monthly or less 04/22/2018 Average Number of Drinks Not on file 019 Frequency of Binge Drinking Not on file 04/05 Sex and Gender Information Value Date Recorded Sex Assigned at Not on file Legal Sex Male 4:58 PM CDT Gender Identity Not on file Sexual Orientation Not on file Occupation Industry Job Start Date Job End Date Not on file Not on file Not on file Not on file Last Filed Vital Signs Vital Sign Reading Time Taken Comments Blood Pressure 122/60 11/14/2018 9:22 AM CDT Pulse 64 11/14/2018 9:22 AM CDT Temperature 36.9 C (98.4 F) 09/17/2018 7:41 AM CDT Respiratory Rate 20 11/14/2018 9:22 AM CDT Oxygen Saturation 98% 09/17/2018 7:41 AM CDT Inhaled Oxygen Concentration - - Weight 77.8 kg (171 lb 9.6 oz) 11/14/2018 9:22 A M CDT Height 165.1 cm (5' 5 ) 11/14/2018 9:22 AM CDT Body Mass Index 28.56 11/14/2018 9:22 AM CDT Plan of Treatment Health Maintenance Due Date Last Done Comments ASCVD LDL 1955 ASCVD Statin 1955 Colorectal Cancer Screening Colonoscopy (10 Years) 1955 Pneumococcal Vaccine: 65+ Ye ars (1 of 2 - PCV) 1961 Hepatitis C 1973 DTaP, Tdap and Td Vaccines ( 1 - Tdap) 1974 Zoster Vaccines (1 of 2) 2005 RSV Immunization or 60+ Years (1 - Risk 60-74 years 1-dose series) 2015 COVID-19 Vaccine (2023-2 5 season) 2023 Influenza Adult (#1) 2023 Meningococcal B Vaccine Aged Out No l onger eligible based on patient's age to complete this topic Meningococcal Vaccine Aged Out No yuval gauri eligible based on patient's age to complete this topic RSV Immunizations Under 20 Months Aged Out No longer eligible based on patient's age to complete this topic Medical Devices Implanted Type Area Associate Accountant Device Identifier Shelf Expiration Date Model / Serial / Lot Pv Icast Covered Stent Right Iliac-09/17/2018 Implanted:09/17 by Mohsen Ledesma MD (Quantity not on file) Stent Leg [employer] [facility] 07/21/2019 [id number] / [id number] / Insurance [employer] Advance Directives * Full Code (Latest Code Status on File) Date Activated Date Inactivated Comments 09/17/2018 10:10 AM 09/17/2018 5:05 PM Care Teams Retail Loss Prevention Investigator Relationship Specialty Start Date End Date Van Alegre MD [address] [place] [address] PCP - General FAMILY PRACTICE 04/09/18 Samson Cruz MD [address] [place] [address] INTERNAL MEDICINE 04/09/18
--- OUTSIDE RECORDS SUMMARY | 2024-03-26 18:22 | XMS_ITS | Encounter Summary ---
Author Organization [facility] Address [facility] [place] [address] Care Team Providers Care Referral Clerk Name Role Phone Van Alegre MD Primary Care Provider [phone] Samson Cruz MD Unavailable Encounter Details Date Type Department Care Team (Late st Contact Info) Description 09/16/2018 Abstract [facility] [address] [place] [id number] Abstract, Doc [facility] Social History Tobacco Use Types Packs/Day Years [...] file Not on file Not on file documented as of this encounter Plan of Treatment Not on file documented as of this encounter Procedures Procedure Name Priority Date/Time Associated Diagnosis Comments BASIC METABOLIC PANEL Routine 09/13/2018 PAD (peripheral artery disease) Claudication in peripheral vascular disease Essential hypertension CBC W/DIFF AUTOMATED Routine 09/13/2018 PAD (peripheral artery disease) Claudication in peripheral vascular disease Essential hypertension documented in this encounter Results * (ABNORMAL) CBC W/DIFF AUTOMATED (09/13/2018) WBC 8.8 4.8 - 10.8 RBC 4.01(A) 4.7 - 6.1 HGB 12.8(A) 14 - 18 HCT 38.2 37 - 46 MCV 95 78 - 102 MCH 31.9(A) 27 - 31 MCHC 33.5 33 - 37 RDW 13.2 11.6 - 14.4 PLT 286 150 - 420 MPV 8.5(A) 8.7 - 11.0 NEUTROPHILS % 64.3 50 - 70 LYMPHOCYTES % 21 18 - 42 MONOCYTES % 10.3 2.0 - 11.0 EOSINOPHILS % 3.3 1.0 - 6.0 BASOPHILS % 0.6 0.0 - 1.0 ABS. NEUTROPHILS 5.64 1.7 - 7.2 ABS. LYMPHOCYTES 1.84 1.10 - 4.50 ABS. MONOCYTES 0.9 0.10 - 0.9 ABS. BASOPHILS 0.05 0.00 - 0.10 09/13/2018 us Mohsen Ledesma MD LABORATORY Final Result * (ABNORMAL) BASIC METABOLIC PANEL (09/13/2018) SODIUM S/P/B 137 136 - 145 POTASSIUM S/P/B 4.5 3.5 - 5.1 CO2 23 21 - 32 CHLORIDE S/P/B 102 98 - 108 GLUCOSE 200(A) 70 - 99 mg/dL CALCIUM S/P/B 8.8 8.5 - 10.1 BUN 24(A) 7 - 18 CREATININE S/P/B 1.17 0.7 - 1.3 EGFR NON-AFR. AMER. 67 <=90 09/13/2018 us Mohsen Ledesma MD LABORATORY Final Result documented in this encounter Visit Diagnoses Diagnosis PAD (peripheral artery disease) ([facility]) Peripheral vascular disease, unspecified Claudication in peripheral vascular disease ([facility]) Peripheral vascular disease, unspecified Essential hypertension Unspecified essential hypertension documented in this encounter Care Teams Referral Clerk Relationship Specialty Start Date End Date Van Alegre MD [address] [place] [address] PCP - General FAMILY PRACTICE 04/09/18 Samson Cruz MD [address] [place] [address] INTERNAL MEDICINE 04/09/18 documented as of this encounter
--- OUTSIDE RECORDS SUMMARY | 2024-03-26 18:22 | XMS_ITS | Referral Summary ---
Author Organization [facility][1] Address [address] [place] [address] Care Team Providers Care Taper And Floater Name Role Phone Zia Hensley DO Primary Care Provider Vitaliy Moncada Belinda DO Unavailable [phone] Gloria Li OD Unavailable Allergies No known active allergies Medications tadalafiL (CIALIS) 20 mg tabletIndications:E rectile Dysfunction Take 1 tablet (20 mg total) by mouth daily as needed for erectile dysfunction 03/21/19 23 Active sertraline (ZOLOFT) 100 mg tabletIndications:d epression Take 1 tablet (100 mg total) by mouth every morning 05/13/19 23 Active montelukast (SINGULAIR) 10 mg tabletIndications:M aintenance Therapy for Asthma Take 1 tablet (10 mg total) by mouth nightly 06/02/19 23 Active metoprolol tartrate (LOPRESSOR) 50 mg immediate release tabletIndications:h ypertension Take 1 tablet (50 mg total) by mouth 2 (two) times a day 05/13/19 23 Active cilostazoL (PLETAL) 100 mg tabletIndications:w hen they put stents in his legs Take 1 tablet (100 mg total) by mouth 2 (two) times a day 06/06/19 23 Active busPIRone (BUSPAR) 15 mg tabletIndications:D oesn't know why he takes it Take 1 tablet (15 mg total) by mouth 2 (two) times a day 05/13/19 23 Active brimonidine (ALPHAGAN) 0.2 % ophthalmic solutionIndications :high pressure in eyes Administer 1 drop into both eyes 2 (two) times a day 05/16/19 23 Active atorvastatin (LIPITOR) 80 mg tabletIndications:c oronary artery disease,hyperlipide luis Take 1 tablet (80 mg total) by mouth every morning 06/02/19 23 Active amLODIPine (NORVASC) 10 mg tabletIndications:h ypertension Take 1 tablet (10 mg total) by mouth every morning 05/30/19 23 Active amitriptyline (ELAVIL) 50 mg tabletIndications:R estless leg Take 1 tablet (50 mg total) by mouth nightly 05/13/19 23 Active aspirin 81 mg enteric coated tabletIndications:C erebral Thromboembolism Prevention,- PCP did a scan and had some mini strokes in his sleep and clogged arteries Take 1 tablet (81 mg total) by mouth every morning Active budesonide-glycopyr -formoterol (Breztri Aerosphere) 160-9-4.8 mcg/actuation HFA aerosol inhalerIndications: Bronchospasm Prevention with COPD Inhale 2 puffs 2 (two) times a day Active albuterol HFA (PROVENTIL HFA,VENTOLIN HFA,PROAIR HFA) 90 mcg/actuation inhaler Inhale 2 puffs every 6 (six) hours as needed for wheezing Active herbal drugs tablet Take 2 tablets by mouth every morning Four Function Brain Support by [place] Active folic acid/multivit-min/l utein (CENTRUM SILVER ORAL)Indications:pr evention of vitamin deficiency Take 1 tablet by mouth every morning Active melatonin 10 mg tablet Take 1 tablet (10 mg total) by mouth nightly as needed Active erythromycin (ILOTYCIN) ophthalmic ointment Apply ointment to left eyelid incisions 3 times a day[address] Only place ointment inside the eye for irritation. 3.5 g 3 06/21/19 23 Active erythromycin (ILOTYCIN) ophthalmic ointment Apply ointment to left eyelid incisions 3 times a day. Only place ointment inside the eye for irritation. 3.5 g 3 06/29/19 23 Active latanoprost (XALATAN) 0.005 % ophthalmic solution Administer 1 drop into both eyes nightly 09/02/19 23 Active nebivoloL (BYSTOLIC) 20 mg tablet Take 1 tablet (20 mg total) by mouth daily 12/12/19 23 Active Active Problems Problem Noted Date Diagnosed Date Epiretinal membrane (ERM) of right eye 4 Assessment & Plan (03/07/2023 10:58 AM DEPARTMENT OF NATURAL RESOURCES OFFICER): Sent for evaluation of the epiretinal membrane in the right eye. He did see Dr. Whatley, and was scheduled to have surgery to remove the epiretinal membrane however there was some difficulty at the surgical center and he could not have surgery at that location. After considering his options he decided not to have surgery altogether as he has been doing fairly well with his activities of daily living. He does have a mild epiretinal membrane. We did discuss the possibility of vitrectomy surgery however considering the mild nature of the epiretinal membrane and his ability to do his activities of daily living without interference we have agreed to observation today. He would like to avoid any additional surgical intervention. He has a history of pigmentary glaucoma, and states his vision fluctuates, gets better at times and worse at times, and feels this fluctuation is related to when his pressure in the eye are elevated. I do not think these symptoms of episodic blurring are due to his epiretinal membrane but instead are more likely related to episodes of elevated intra-ocular pressure. I have encouraged him to follow up with Dr. Li regarding his glaucoma. I am happy to see him here as needed. Basal cell carcinoma (BCC) of medial canthus of right eye 06/14/2022 Social History Tobacco Use Types Packs/Day Years Used Date Smoking Tobacco: Every Day Cigarettes 1 57.1 Started: 1967 Smokeless Tobacco: Never Tobacco Cessation:Ready to Q uit: Not Asked; Counseling Given: Yes Comments:Thinking about quitting cigarettes AUDIT-C Answer Date Recorded Q1: How often do you have a drink containing alc ohol? 2-4 times a month 06/20/2022 Q2: How many drinks containi ng alcohol do you have on a typical day when you are drinking? 1 or 2 06/20/2022 Q3: How often do you have si x or more drinks on one occasion? Never 06/20/2022 Personal Safety Answer Date Recorded Have you ever been in or are you currently in a harmful physical or emotional relationship or is someone making you feel afraid or unsafe? Denies 06/20/2022 Sex and Gender Information Value Date Recorded Sex Assigned at Not on file Legal Sex Male 6:41 PM DEPARTMENT OF NATURAL RESOURCES OFFICER Gender Identity Not on file Sexual Orientation Not on file Last Filed Vital Signs Vital Sign Reading Time Taken Comments Blood Pressure 143/77 06/20/2022 6:00 PM CDT Pulse 67 06/20/2022 6:00 PM CDT Temperature 36.5 C (97.7 F) 06/20/2022 5:45 PM CDT Respiratory Rate 19 06/20/2022 6:00 PM CDT Oxygen Saturation 95% 06/20/2022 6:00 PM CDT Inhaled Oxygen Concentration - - Weight 76.7 kg (169 lb) 06/15/2022 2:55 PM CDT Height 167.6 cm (5' 6 ) 06/15/2022 2:55 PM CDT Body Mass Index 27.28 06/15/2022 2:55 PM CDT Plan of Treatment Not on file Insurance [id number] [place] [address] MEDICARE [facility] Address: [address] [address] [place] [address] IDPA Care Teams Taper And Floater Relationship Specialty Start Date End Date Zia Hensley DO [address] [place] [address] PCP - General Family Medicine 06/14/22 Vitaliy Moncada DO [address] [place] [address] Cardiology 06/14/22 Gloria Li OD [address] [place] [address] Optometry 06/14/22
--- OUTSIDE RECORDS SUMMARY | 2024-03-26 18:22 | XMS_ITS | Clinical Summary ---
Author Organization [facility] Address [address] [place] [address] Care Team Providers Care Dean Name Role Phone Zia Hensley DO Primary Care Provider Vitaliy Moncada Belinda DO Unavailable [phone] Gloria Li OD Unavailable Allergies No known [...] every morning Four Function Brain Support by [place] Active folic acid/multivit-min/l utein (CENTRUM SILVER ORAL)Indications:pr [...] 4 Assessment & Plan (03/07/2023 10:58 AM ANGULAR JS DEVELOPER): Sent for evaluation of the epiretinal membrane [...] of medial canthus of right eye 06/14/2022 Surgical History Surgery Date Site/Laterality Comments CATARACT EXTRACTION W/ INTRA OCULAR LENS IMPLANT 02/05/2010 - 02/04/2011 Left CAROTID ARTERY - SUBCLAVIAN ARTERY BYPASS GRAFT 02/06/2012 - 02/04/2013 Right CATARACT EXTRACTION W/ INTRA OCULAR LENS IMPLANT 02/06/2020 - 02/04/2021 Right ESOPHAGOGASTRODUODENOSCOPY 02/05/2018 - 02/04/2019 Bleeding ulcer FEMORAL ARTERY STENT 02/05/2010 - 02/04/2011 Left FEMORAL ARTERY STENT 02/06/2020 - 02/04/2021 Right COLONOSCOPY Medical History Medical History Date Comments COPD (chronic obstructive pu lmonary disease) ([facility]) Hypertension CVA (cerebral vascular accident) ([facility]) Dr did a scan and saw indication of previous stroke ?? when , no symptoms PVD (peripheral vascular disease) ([facility]) Dysequilibrium RLS (restless legs syndrome) Hyperlipemia Back pain Carotid artery stenosis right si de Basal cell carcinoma medial cant hus left eye Family History Medical History Relation Name Comments Diabetes Brother 1 Diabetes Father Diabetes Mother Stroke Mother Diabetes Mother's Sister Macular degeneration Mother's Sister Diabetes Sister Anesthesia problems Neg Hx Cancer Neg Hx Glaucoma Neg Hx Thyroid disease Neg Hx Relation Name Status Comments Brother 1 Brother 2 Father Mother Mother's Sister Sister Alive Social History Tobacco Use Types Packs/Day Years [...] on file Legal Sex Male 6:41 PM ANGULAR JS DEVELOPER Gender Identity Not on file Sexual Orientation Not on file Obstetrics History Last Filed Vital Signs Vital Sign Reading [...] 06/15/2022 2:55 PM CDT Plan of Treatment Health Maintenance Due Date Last Done Comments Colon Cancer Screening-Colonoscopy 1955 Depression Screening 1955 Hepatitis C Screening 1955 Prostate Cancer Screening-PSA 1955 DTaP/Tdap/Td Vaccine (1 - Tdap) 1966 Hepatitis B Screening 1973 Zoster Vaccine (1 of 2) 2005 Abdominal Aortic Aneurysm (A AA) Screen 2020 Well Visit 65+ 2020 Pneumococcal vaccine 65+ (2 of 2 - PPSV23) 03/09/2021 01/12/2021 Fall Risk Assessment 06/21/2023 06/20/2022 Covid-19 Vaccine ( - season) 2023 10/25/2021, 08/03/2020, 07/09/2020 Influenza Vaccine (#1) 2023 , 01/12/2021, 02/14/[id number] [place] [address] Member Subscriber Plan / Payer (Ef fective 2022-Present) Name:Antolin Swartz Relation to Subscriber:Self Name:Antolin Swartz Payer ID:[id number] (NAIC) Type:MEDICARE RISK OTHER Address: [address] MEDICARE [facility] Address: [address] [address] [place] [address] IDPA Care Teams Dean Relationship Specialty Start Date End Date Zia Hensley DO [address] [place] [address] PCP - General Family Medicine 06/14/22 Vitaliy Moncada DO [address] [place] [address] Cardiology 06/14/22 Gloria Li OD [address] [place] [address] Optometry 06/14/22
--- NOTE | 2024-03-26 18:42 | PC.NURSE ---
TO ROOM AT 1839, TECH PLACING ON MONITOR AND OBTAINING EKG, ERP AWARE OF PT
--- NOTE | 2024-03-26 18:45 | ED_ITS ---
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 -- nausea with vomiting and diarrhea. The patient had 1 episode of vomiting and 1 episode of diarrhea today. No fever or chills no chest pain MD elicited complaint: shortness of breath and cough Pertinent past history: COPD and congestive heart failure Onset (ago): day(s) ( Three days) Timing: constant Severity: moderate Exacerbating factors: exertion Relieving factors: rest and bronchodilators Known history of: COPD and congestive heart failure Associated symptoms: cough and chest congestion Treatment prior to arrival: none Related Data Home oxygen amount: none Home Medications ?Medication ?Instructions ?Recorded ?Confirmed ?Last Taken ?Type aspirin 81 mg tablet,delayed 81 mg PO DAILY 06/06/21 01/17/24 Unknown History release (Adult Aspirin Regimen) brimonidine 0.2 % eye drops drp ophthalmic (eye) 09/04/22 01/17/24 Unknown History latanoprost 0.005 % eye drops drp ophthalmic (eye) 09/04/22 01/17/24 Unknown History Allergies Allergy/AdvReac Type Severity Reaction Status Date / Time lisinopril AdvReac Severe angioedema Verified 01/17/24 14:02 NSAIDS (Non-Steroidal AdvReac Severe Nausea and Verified 01/17/24 14:02 Anti-Inflamma Vomiting Review of Systems 2 Review of Systems: All systems reviewed & are unremarkable except as noted in HPI and below Constitutional: Constitutional: Reports as per HPI and Reports no additional constitutional complaints Eyes: Eyes: Reports as per HPI and Reports no additional eye complaints ENT: Reports system reviewed and no additional complaints, except as documented and Reports as per HPI Cardiovascular: Cardiovascular: Reports as per HPI and Reports no additional cardiovascular complaints Respiratory: Respiratory: Reports as per HPI, Reports no additional respiratory complaints, Reports chest congestion, Reports cough, Reports dyspnea and Reports wheezing Gastrointestinal: Gastrointestinal: Reports as per HPI and Reports no additional gastrointestinal complaints Genitourinary: Genitourinary: Reports no additional male genitourinary complaints and Reports as per HPI Musculoskeletal: Musculoskeletal: Reports no additional musculoskeletal complaints and Reports as per HPI Integumentary/Breasts: Skin/Breast: Reports system reviewed and no additional complaints, except as docu and Reports as per HPI Neurologic: Reports system reviewed and no additional complaints, except as documented and Reports as per HPI Psychiatric: Psychiatric: Reports no additional psychiatric complaints and Reports as per HPI Endocrine: Endocrine: Reports no additional endocrine complaints and Reports as per HPI Hematologic/Lymphatic: Hematologic/Lymphatic: Reports no additional hematologic/lymphatic complaints and Reports as per HPI Allergic/Immunologic: Allergic/Immunologic: Reports no additional allergic/immunologic complaints and Reports as per HPI COUNT INCLUDES THE [facility] Past Medical History Medical History Cigarette nicotine dependence Restless leg syndrome GI bleed Erectile dysfunction Chronic low back pain MILIND (generalized anxiety disorder) COPD (chronic obstructive pulmonary disease) PVD (peripheral vascular disease) Hypertension Hyperlipidemia Surgical History Surgical History H/O endarterectomy Family History Family History Other Diabetes mellitus Family history of arthritis Hypertension Social History Social History Social History: Hx of incarceration Smoking packs per day: 1 Smoking cigarettes per day: 20.0 Years smoked: 50 Smoking pack-years: 50.00 Smoking status: Current every day smoker Tobacco type: cigarettes Alcohol intake: never Substance use: never Substance use type: marijuana Living arrangements: with family Occupation/Education: retired Gender identity (if verbalized by the patient): Male Exam 2 Narrative: oxygen saturation of 94% on room air with a respiratory rate of 22. Heart rate of 103. Const: General: no acute distress Limitations: no limitations HENMT: Head: normal to inspection Ears: external ears normal F huy/Nose/Sinus: Normal external nose present Face and sinus: normal facial exam Mouth: Yes Normal oral and palatal mucosa present Throat: posterior oropharynx normal Eyes: Conjunctivae: conjunctivae normal Pupils: Equal, round and reactive pupils present EOM: EOMs intact bilaterally Direct Ophthalmoscopy: no photophobia Neck: Neck: normal visual inspection, no lymphadenopathy and no meningeal signs Chest: Chest palpation & inspection: normal inspection of the chest Resp: Effort & Inspection: normal respiratory effort Auscultation: rhonchi and diminished lung sounds Cardio: Rate: regular rate Rhythm: regular rhythm GI: GI Palp: Yes Soft to palpation Auscultation: normal bowel sounds O ther: No tenderness/ rigidity / rebound. : General: Yes no CVA tenderness Back/Spine/Pelvis: Back: no CVA tenderness Skin: General skin exam: normal color Rashes: no rashes Wounds: no wounds Neuro: General: patient oriented x3, moves all extremities, no meningeal signs and no focal motor deficits Cranial nerves: Yes Nystagmus not present S peech: normal speech Extrem: General: normal to inspection and no clubbing, cyanosis or edema Psych: Mental Status: mental status grossly normal Affect: normal affect Attitude: cooperative Course Course Emergency Course: shortness of breath secondary to COPD exacerbation/ Influenza a/ right middle lobe and right lower lobe pneumonia. Will treat with doxycycline and amoxicillin. will add Tamiflu for flu. Zithromax as interaction with cilostazol and colchicine and hands will hold it. Would give doxycycline. Acute renal failure with a BUN/creatinine of 18/1.44. The patient has normal renal function at baseline. elevated troponin of 64. EKG did not show any acute ST elevation. It revealed nonspecific ST-T changes. Repeat troponin was noted to be 62.2. Elevated troponins appears to be secondary to demand ischemia. Vital Signs Vital signs: Vital Signs Oxygen Delivery Room Air 03/26/24 18:40 Temperature 37.2 C 03/26/24 18:57 Pulse Rate 80 03/26/24 20:31 Respiratory Rate 22 H 03/26/24 18:57 Blood Pressure 145/83 H 03/26/24 18:57 Pulse Oximetry 94 03/26/24 18:57 Oxygen Delivery Room Air 03/26/24 18:57 MDM - SOB/Dyspnea MDM Narrative Medical decision making narrative: COPD exacerbation influenza a right middle lobe/right lower lobe pneumonia acute renal failure Differential Diagnosis Differential diagnosis: Likely acute exacerbation of chronic obstructive airways disease and congestive heart failure Medical Records Attestation: I reviewed the patient's medical records. Lab Data Attestation: I reviewed the patient's lab results. 03/26/24 19:24 03/26/24 19:24 Labs: Lab Results 03/26/24 03/26/24 03/26/24 Range/Units 19:09 19:24 21:47 WBC 9.5 (4.8-10.8) K/mm3 RBC 4.61 L (4.70-6.10) M/mm3 Hgb 14.5 (12.4-15.3) g/dL Hct 43.5 (37.0-46.0) % MCV 94.4 (78.0-102.0) fL MCH 31.5 H (27.0-31.0) pg MCHC 33.3 (32-36) g/dL RDW 14.0 (11.6-14.4) % Plt Count 280 (150-420) K/mm3 MPV 8.9 (8.7-11.0) fl Immature Gran % (Auto) 0.2 H (0.0-0.0) % Neut % (Auto) 79.0 H (50.0-70.0) % Lymph % (Auto) 9.5 L (18.0-42.0) % Citrus % (Auto) 10.7 (2.0-11.0) % Eos % (Auto) 0.4 L (1.0-6.0) % Baso % (Auto) 0.2 (0.0-1.0) % Lymph # (Auto) 0.90 L (1.10-4.50) K/mm3 Citrus # (Auto) 1.02 H (0.10-0.90) K/mm3 Eos # (Auto) 0.04 (0.02-0.50) K/mm3 Baso # (Auto) 0.02 (0.00-0.10) K/mm3 Abs Immat Gran (auto) 0.02 H (0.00-0.00) K/mm3 Absolute Neuts (auto) 7.50 H (1.70-7.20) K/mm3 Absolute Nucleated RBC 0.00 (0.00-0.00) K/mm3 Nucleated RBC % 0.0 (0-0.0) % PT 10.3 (9.50-12.1) Seconds INR 0.9 APTT 30.4 (23.9-30.70) Sec D-Dimer 0.62 H* (0.19-0.50) mg/L Sodium 136 (136-145) mmol/L Potassium 3.1 L (3.5-5.1) mmol/L Chloride 97 L (98-108) mmol/L Carbon Dioxide 30 (21-32) mmol/L Anion Gap 9 (4-12) mmol/L BUN 18 (7-18) mg/dL Creatinine 1.44 H (0.70-1.30) mg/dL Estim Creat Clear Calc 39 ml/min Estimated GFR 49 L (59 - ) Glucose 152 H (70-99) mg/dL Calculated Osmolality 286 (285-295) mOsm/kg Lactic Acid 1.4 (0.4-2.0) mmol/L Calcium 8.4 L (8.5-10.1) mg/dL Total Bilirubin 0.6 (0.00-1.00) mg/dL AST 91 H (15-37) U/L ALT 43 (16-63) U/L Alkaline Phosphatase 136 H (46-116) U/L Troponin I 63.8 H* 62.2 H* (0.00-60.4) ng/L NT-Pro-B Natriuret Pep 1233 H (0-125) pg/mL Total Protein 7.5 (6.4-8.2) g/dL Albumin 3.4 (3.4-5.0) g/dL Influenza A (RT-PCR) Positive A (Negative) Influenza B (RT-PCR) Negative (Negative) RSV (RT-PCR) Negative (Negative) SARS-CoV-2 RNA (RT-PCR) Negative (Negative) ECG Data EKG #1: ECG completion date: 03/26/24 ECG completion time: 18:51 Interpretation: Sinus tachycardia with a heart rate of 101. No ST elevation. Nonspecific ST- T changes. Discharge Plan Discharge Clinical Impression: COPD exacerbation, Influenza A Pneumonia Qualifiers: Pneumonia type: due to unspecified organism Laterality: right Lung location: l ower lobe of lung Qualified Code(s): J18.9 - Pneumonia, unspecified organism Acute on chronic kidney failure Qualifiers: Acute renal failure type: unspecified Chronic kidney disease stage: stage 3 (moderate) Chronic kidney disease stage 3 subtype: stage 3b (GFR 30-44) Q ualified Code(s): N17.9 - Acute kidney failure, unspecified Patient Disposition: Home, Self-Care Condition: Stable Instructions: Antibiotic Form, Influenza (ED), COPD (Chronic Obstructive Pulmonary Disease) (ED), Bacterial Pneumonia (ED) Patient Language: Indonesian Prescriptions: New doxycycline hyclate 100 mg capsule 100 mg PO BID Qty: 14 0RF amoxicillin 500 mg capsule 1,000 mg PO Q8H Qty: 42 0RF oseltamivir [Tamiflu] 30 mg capsule 30 mg PO BID 5 Days Qty: 10 0RF No Action aspirin [Adult Aspirin Regimen] 81 mg tablet,delayed release (DR/EC) 81 mg PO DAILY latanoprost 0.005 % drops ophthalmic (eye) brimonidine 0.2 % drops ophthalmic (eye) epinephrine 0.3 mg/0.3 mL auto-injector 0.3 mg IM ONCE Qty: 2 0RF Rx Instructions: as a single dose; may repeat once colchicine 0.6 mg tablet See Rx Instructions PO DAILY Qty: 3 3RF Rx Instructions: [1.2 mg PO x1, then 0.6 mg PO 1h later x1]; albuterol sulfate [Ventolin HFA] 90 mcg/actuation HFA aerosol inhaler See Rx Instructions .ROUTE .COMPLEX Qty: 54 3RF Dose Instruction: INHALE 1 PUFF EVERY 4 HOURS NEEDED FOR SHORTNESS OF BREATH OR WHEEZING Rx Instructions: INHALE 1 PUFF EVERY 4 HOURS NEEDED FOR SHORTNESS OF BREATH OR WHEEZING sildenafil 100 mg tablet See Rx Instructions .ROUTE .COMPLEX Qty: 30 0RF Dose Instruction: TAKE 1/2 (ONE-HALF) TABLET BY MOUTH ONCE DAILY NEEDED FOR SEXUAL ACTIVITY. ADMINISTER 30 MINUTES TO 4 HOURS BEFORE ACTIVITY. Rx Instructions: TAKE 1/2 (ONE-HALF) TABLET BY MOUTH ONCE DAILY NEEDED FOR SEXUAL ACTIVITY. ADMINISTER 30 MINUTES TO 4 HOURS BEFORE ACTIVITY. amitriptyline 50 mg tablet See Rx Instructions .ROUTE .COMPLEX Qty: 90 3RF Dose Instruction: TAKE 1 TABLET BY MOUTH EVERY DAY IN THE EVENING Rx Instructions: TAKE 1 TABLET BY MOUTH EVERY DAY IN THE EVENING nebivolol 20 mg tablet See Rx Instructions .ROUTE .COMPLEX Qty: 90 2RF Dose Instruction: TAKE 1 TABLET BY MOUTH EVERY DAY Rx Instructions: TAKE 1 TABLET BY MOUTH EVERY DAY atorvastatin 80 mg tablet See Rx Instructions .ROUTE .COMPLEX Qty: 90 2RF Dose Instruction: TAKE 1 TABLET BY MOUTH EVERY DAY Rx Instructions: TAKE 1 TABLET BY MOUTH EVERY DAY montelukast 10 mg tablet See Rx Instructions .ROUTE .COMPLEX Qty: 90 3RF Dose Instruction: TAKE 1 TABLET DAILY Rx Instructions: TAKE 1 TABLET DAILY amlodipine 10 mg tablet See Rx Instructions .ROUTE .COMPLEX Qty: 90 3RF Dose Instruction: TAKE 1 TABLET DAILY Rx Instructions: TAKE 1 TABLET DAILY losartan 100 mg tablet See Rx Instructions .ROUTE .COMPLEX Qty: 90 0RF Dose Instruction: TAKE 1 TABLET BY MOUTH EVERY DAY Rx Instructions: TAKE 1 TABLET BY MOUTH EVERY DAY pantoprazole 40 mg tablet,delayed release (DR/EC) See Rx Instructions .ROUTE .COMPLEX Qty: 42 0RF Dose Instruction: TAKE 1 TABLET BY MOUTH EVERY DAY IN THE MORNING Rx Instructions: TAKE 1 TABLET BY MOUTH EVERY DAY IN THE MORNING allopurinol 100 mg tablet See Rx Instructions .ROUTE .COMPLEX Qty: 90 1RF Dose Instruction: TAKE 1 TABLET BY MOUTH EVERY DAY Rx Instructions: TAKE 1 TABLET BY MOUTH EVERY DAY sertraline 100 mg tablet See Rx Instructions .ROUTE .COMPLEX Qty: 90 1RF Dose Instruction: TAKE 1 TABLET DAILY Rx Instructions: TAKE 1 TABLET DAILY cilostazol 100 mg tablet See Rx Instructions .ROUTE .COMPLEX Qty: 180 1RF Dose Instruction: TAKE 1 TABLET BY MOUTH TWICE A DAY Rx Instructions: TAKE 1 TABLET BY MOUTH TWICE A DAY buspirone 15 mg tablet See Rx Instructions .ROUTE .COMPLEX Qty: 180 1RF Dose Instruction: TAKE 1 TABLET BY MOUTH TWICE A DAY Rx Instructions: TAKE 1 TABLET BY MOUTH TWICE A DAY Breztri Aerosphere 160-9-4.8 mcg/actuation HFA aerosol inhaler See Rx Instructions .ROUTE .COMPLEX Qty: 10.7 2RF Dose Instruction: TAKE 2 INHALATIONS TWICE A DAY Rx Instructions: TAKE 2 INHALATIONS TWICE A DAY Follow-up/Referrals: Zia Hensley DO [Primary Care Provider] - Time of Disposition: 23:51
--- NOTE | 2024-03-26 18:59 | ECG_ITS ---
Test Date: 2024-03-26 18:51:51 Measurements Intervals [place] Rate: 101 P: 78 VT: 146 QRS: 21 QRSD: 94 T: 43 QT: 360 QTc: 468 Interpretive Statements SINUS TACHYCARDIA VENTRICULAR PREMATURE COMPLEX CANNOT R/O SEPTAL INFARCT, AGE INDETERMINATE NONSPECIFIC ST & T-WAVE ABNORMALITY- DIFFUSE LEADS BASELINE ARTIFACT- I, II, III, AVR, AVL, AVF, V1-V6 ABNORMAL ECG No previous ECG available for comparison Electronically Signed On 03-27-2024 07:50:17 MATE SHIP by Vitaliy Moncada D.O.
--- OUTSIDE RECORDS SUMMARY | 2024-03-26 19:02 | XMS_ITS | Encounter Summary ---
Author Organization [facility] Address [facility] [place] [address] Care Team Providers Care Loading Machine Operator Helper Name Role Phone Van Alegre MD Primary Care Provider [phone] Samson Cruz MD Unavailable Encounter Details Date Type Department Care Team (Late st Contact Info) Description 09/16/2018 Abstract [facility] [address] [place] [id number] Abstract, Doc Pre[facility] Social History Tobacco Use [...] Visit Diagnoses Diagnosis PAD (peripheral artery disease) ([facility]) Peripheral vascular disease, unspecified Claudication in peripheral vascular disease ([facility]/HCC) Peripheral vascular disease, unspecified Essential hypertension Unspecified essential hypertension documented in this encounter Care Teams Loading Machine Operator Helper Relationship Specialty Start Date End Date Van Alegre MD [address] [place] [address] PCP - General FAMILY PRACTICE 04/09/18 Samson Cruz MD [address] [place] [address] INTERNAL MEDICINE 04/09/18 documented as of this encounter
--- OUTSIDE RECORDS SUMMARY | 2024-03-26 19:02 | XMS_ITS | Clinical Summary ---
Author Organization [facility] Address [facility] [place] [address] Care Team Providers Care Straight Pin Making Machine Operator Name Role Phone Van Alegre MD Primary Care Provider [phone] Samson Cruz MD Unavailable Allergies No known [...] 81 mg by mouth daily. Active Umeclidinium Pollok (INCRUSE ELLIPTA) 62.5 MCG/INH AEROSOL POWDER, BREATH [...] 04/22/2018 COPD (chronic obstructive pu lmonary disease) ([facility]) 04/22/2018 PAD (peripheral artery disease) 04/22/2018 Smoker [...] this topic Medical Devices Implanted Type Area Play Therapist Device Identifier Shelf Expiration Date Model / Serial / Lot Pv Icast Covered Stent Right Iliac-09/17/2018 Implanted:09/17 by Mohsen Ledesma MD (Quantity not on file) Stent Leg [facility] 07/21/2019 [id number] / [id number] / Insurance [employer] Advance Directives * Full Code (Latest Code Status on File) Date Activated Date Inactivated Comments 09/17/2018 10:10 AM 09/17/2018 5:05 PM Care Teams Straight Pin Making Machine Operator Relationship Specialty Start Date End Date Van Alegre MD [address] [place] [address] PCP - General FAMILY PRACTICE 04/09/18 Samson Cruz MD [address] [place] [address] INTERNAL MEDICINE 04/09/18
--- OUTSIDE RECORDS SUMMARY | 2024-03-26 19:03 | XMS_ITS | Referral Summary ---
Author Organization [facility] Address [address] [place] [address] Care Team Providers Care Electric Meter Reader Name Role Phone Zia Hensley DO Primary Care Provider Vitaliy Moncada Belinda DO Unavailable [phone] Gloria Li OD Unavailable Allergies No known [...] every morning Four Function Brain Support by [place] Active folic acid/multivit-min/l utein (CENTRUM SILVER ORAL)Indications:pr [...] 4 Assessment & Plan (03/07/2023 10:58 AM CONTRACT ASSOCIATE MANAGER): Sent for evaluation of the epiretinal membrane [...] on file Legal Sex Male 6:41 PM CONTRACT ASSOCIATE MANAGER Gender Identity Not on file Sexual Orientation [...] Plan of Treatment Not on file Insurance [id number] [place] [address] MEDICARE IDPA Care Teams Electric Meter Reader Relationship Specialty Start Date End Date Zia Hensley DO [address] [place] [address] PCP - General Family Medicine 06/14/22 Vitaliy Moncada DO [address] [place] [address] Cardiology 06/14/22 Gloria Li OD [address] [place] [address] Optometry 06/14/22
--- OUTSIDE RECORDS SUMMARY | 2024-03-26 19:03 | XMS_ITS | Clinical Summary ---
Author Organization [facility] Address [address] [place] [address] Care Team Providers Care Folding Machine Operator Name Role Phone Zia Hensley DO Primary Care Provider Vitaliy Moncada Belinda DO Unavailable [phone] Gloria Li OD Unavailable Allergies No known [...] every morning Four Function Brain Support by [place] Active folic acid/multivit-min/l utein (CENTRUM SILVER ORAL)Indications:pr [...] 4 Assessment & Plan (03/07/2023 10:58 AM CTE TEACHER): Sent for evaluation of the epiretinal membrane [...] COPD (chronic obstructive pu lmonary disease) ([facility]) Hypertension CVA (cerebral vascular accident) ([facility]) Dr did a scan and saw indication of previous stroke ?? when , no symptoms PVD (peripheral vascular disease) ([facility]) Dysequilibrium RLS (restless legs syndrome) Hyperlipemia Back [...] on file Legal Sex Male 6:41 PM CTE TEACHER Gender Identity Not on file Sexual Orientation [...] Vaccine (#1) 2023 , 01/12/2021, 02/14/[id number] [place] [address] Member Subscriber Plan / Payer (Ef fective 2022-Present) Name:Antolin Swartz Relation to Subscriber:Self Name:Antolin Swartz Payer ID:[id number] (NAIC) Type:MEDICARE RISK OTHER Address: [address] MEDICARE [facility] Address: [address] [address] [place] [address] IDPA Care Teams Folding Machine Operator Relationship Specialty Start Date End Date Zia Hensley DO [address] [place] [address] PCP - General Family Medicine 06/14/22 Vitaliy Moncada DO [address] [place] [address] Cardiology 06/14/22 Gloria Li OD [address] [place] [address] Optometry 06/14/22
[2024-03-26 19:28] LABS: Basophils Absolute Auto 0.02 K/mm3 (0.00-0.10); Basophils Percent Auto 0.2 % (0.0-1.0); Eosinophils Absolute Auto 0.04 K/mm3 (0.02-0.50); Eosinophils Percent Auto 0.4 % (1.0-6.0); Hematocrit 43.5 % (37.0-46.0); Hemoglobin 14.5 g/dL (12.4-15.3); Immature Granulocyte Absolute 0.02 K/mm3 (0.00-0.00); Immature Granulocyte Percent A 0.2 % (0.0-0.0); Lymphocytes Percent Auto 9.5 % (18.0-42.0); Mean Corpuscular HGB Conc 33.3 g/dL (32-36); Mean Corpuscular Hemoglobin 31.5 pg (27.0-31.0); Mean Corpuscular Volume 94.4 fL (78.0-102.0); Mean Platelet Volume 8.9 fl (8.7-11.0); Monocytes Absolute Auto 1.02 K/mm3 (0.10-0.90); Monocytes Percent Auto 10.7 % (2.0-11.0); Platelet Count Result 280 K/mm3 (150-420); Red Blood Count 4.61 M/mm3 (4.70-6.10); White Blood Count 9.5 K/mm3 (4.8-10.8)
[2024-03-26 19:43] LABS: INR 0.9; Partial Thromboplastin Time 30.4 Sec (23.9-30.70); Prothrombin Time 10.3 Seconds (9.50-12.1)
--- NOTE | 2024-03-26 19:46 | PC.NURSE ---
Addendum entered by Jessy Lopez RN 03/26/24 19:47: TOAN TO ASSESS LUNG SOUNDS, THIS RN WAS UNABLE TO COMPLETE LUNG ASSESSMENT. Original Note: 1904- REPORT TO KALPESH JOYA
[2024-03-26 19:47] LABS: D Dimer 0.62 mg/L (0.19-0.50)
[2024-03-26 19:49] LABS: Lactic Acid Reflex 1.4 mmol/L (0.4-2.0)
[2024-03-26 19:50] LABS: Alanine Aminotransferase 43 U/L (16-63); Albumin Level 3.4 g/dL (3.4-5.0); Alkaline Phosphatase 136 U/L (46-116); Anion Gap 9 mmol/L (4-12); Aspartate Amino Transferase 91 U/L (15-37); Bilirubin,Total 0.6 mg/dL (0.00-1.00); Blood Urea Nitrogen 18 mg/dL (7-18); Calcium 8.4 mg/dL (8.5-10.1); Carbon Dioxide 30 mmol/L (21-32); Chloride 97 mmol/L (98-108); Estimated CRCL calculation 39 ml/min; Estimated Glomerular Filt Rate 49; Glucose 152 mg/dL (70-99); NT Pro B Type Natriuretic Pept 1233 pg/mL (0-125); Osmolality Calculated 286 mOsm/kg (285-295); Potassium 3.1 mmol/L (3.5-5.1); Sodium 136 mmol/L (136-145); Total Protein 7.5 g/dL (6.4-8.2)
[2024-03-26 19:52] LABS: Troponin I 63.8 ng/L (0.00-60.4)
[2024-03-26] MEDS: methylPREDNISolone SOD SUCC 125 MG VIAL IV PUSH (19:55)
[2024-03-26] MEDS: IPRATROPIUM 0.5 MG/ALBUTEROL SULFATE 2.5 MG AMPUL.NEB 3 ML INHALATION (19:55)
[2024-03-26 20:04] LABS: SARS-CoV-2 RNA PCR Negative (Negative)
[2024-03-26 20:08] LABS: Influenza A QL RT-PCR Positive (Negative); Influenza B QL RT-PCR Negative (Negative); RSV RNA, RT-PCR Negative (Negative)
--- NOTE | 2024-03-26 20:20 | PC.NURSE ---
patient taken to CT scan via wheelchair per fixed income trading vice president.
[2024-03-26 22:16] LABS: Troponin I 62.2 ng/L (0.00-60.4)
[2024-03-26] MEDS: LACTATED RINGERS 500 ML 999 ML IV CONT (22:19)
[2024-03-26] MEDS: OSELTAMIVIR PHOSPHATE 75 MG CAPSULE PO (22:21)
[2024-03-26] MEDS: AZITHROMYCIN 250 MG TABLET 500 MG PO (22:21)
[2024-03-27 00:01] VITALS: BP 136/73; PULSE 91; RESP 21; O2SAT 93
--- NOTE | 2024-03-27 00:07 | PC.NURSE ---
patient update provided per Dr. Watkins at this time including results and plan of care.
[2024-03-27 00:15] VITALS: PULSE 98
--- NOTE | 2024-03-28 14:07 | PC.NURSE ---
preliminary blood cultures x2 reviewed. no growth to date
== END 2024-03-27 00:34 | disposition home or self-care (01) ==
PROVIDERS: Emergency Provider Internal Medicine Critical Care Medicine; PCP Family Medicine
DX: J44.1 Chronic obstructive pulmonary disease with (acute) exacerbation (principal); J10.1 Influenza due to other identified influenza virus with other respiratory manifestations; J18.9 Pneumonia, unspecified organism; N17.9 Acute kidney failure, unspecified; I11.0 Hypertensive heart disease with heart failure; I50.9 Heart failure, unspecified; F17.210 Nicotine dependence, cigarettes, uncomplicated
CPT/HCPCS: 36415; 71045; 71275; 80053; 83605; 83880; 84484; 85025; 85380; 85610; 85730; 87040; 87637; 93005; 96365; 96375; 99284; A9270; J0696; J2919; J7120; Q9967

== ENCOUNTER 2024-05-27 11:51 | Outpatient (CLI) | payer OTHER, SELFPAY ==
--- OUTSIDE RECORDS SUMMARY | 2024-05-27 13:37 | XMS_ITS | Clinical Summary ---
Author Organization [facility] Address [facility] [place] [address] Care Team Providers Care Hat And Cap Parts Cutter Hand Name Role Phone Van Alegre MD Primary Care Provider [phone] Samson Cruz MD Unavailable Allergies No known [...] 81 mg by mouth daily. Active Umeclidinium Tanner (INCRUSE ELLIPTA) 62.5 MCG/INH AEROSOL POWDER, BREATH [...] 04/22/2018 COPD (chronic obstructive pu lmonary disease) ([facility]) 04/22/2018 PAD (peripheral artery disease) [...] Colorectal Cancer Screening Colonoscopy (10 Years) 1955 Hepatitis C 1973 DTaP, Tdap and Td Vaccines ( 1 - Tdap) 1974 Pneumococcal Vaccine: 50+ Ye ars (1 of 2 - PCV) 1974 Zoster Vaccines (1 of 2) 2005 RSV Immunization or 60+ Years (1 - Risk 60-74 years 1-dose series) 2015 COVID-19 Vaccine (2023-2 5 season) 2023 Meningococcal B Vaccine Aged Out No l onger eligible based on patient's age to complete this topic Meningococcal Vaccine Aged Out No yuval gauri eligible based on patient's age to complete this topic RSV Immunizations Under 20 Months Aged Out No longer eligible based on patient's age to complete this topic Medical Devices Implanted Type Area Embedded Nurse Device Identifier Shelf Expiration Date Model / Serial / Lot Pv Icast Covered Stent Right Iliac-09/17/2018 Implanted:09/17 by Mohsen Ledesma MD (Quantity not on file) Stent Leg [employer] ANGELA 07/21/2019 [id number] / [id number] / Insurance [place] Advance Directives * Full Code (Latest Code Status on File) Date Activated Date Inactivated Comments 09/17/2018 10:10 AM 09/17/2018 5:05 PM Care Teams Hat And Cap Parts Cutter Hand Relationship Specialty Start Date End Date Van Alegre MD [address] [place] [address] PCP - General FAMILY PRACTICE 04/09/18 Samson Cruz MD [address] [place] [address] INTERNAL MEDICINE 04/09/18
--- OUTSIDE RECORDS SUMMARY | 2024-05-27 13:37 | XMS_ITS | Clinical Summary ---
Author Organization 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 Gender Identity Not on file Sexual Orientation [...] Risk Assessment 06/21/2023 06/20/2022 Covid-19 Vaccine ( season) 2023 10/25/2021, 08/03/2020, 07/09/2020 Influenza Vaccine (Season Ended) 2024 10/25/2021, 01/12/2021, 02/14/[id number] [place] [address] Member Subscriber Plan / Payer (Ef fective 2022-Present) Name:Antolin Swartz Relation to Subscriber:Self Name:Antolin Swartz Payer ID:[id number] (NAIC) Type:MEDICARE RISK OTHER Address: [address] MEDICARE [place] Care Teams Computer Equipment Installer Relationship Specialty Start Date End Date Zia Hensley DO [address] [place] [address] PCP - General Family Medicine 06/14/22 Vitaliy Moncada DO [address] [place] [address] Cardiology 06/14/22 Gloria Li OD [address] [place] [address] Optometry 06/14/22
--- OUTSIDE RECORDS SUMMARY | 2024-05-27 13:37 | XMS_ITS | Referral Summary ---
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
--- OUTSIDE RECORDS SUMMARY | 2024-05-27 13:37 | XMS_ITS | Encounter Summary ---
Author Organization [facility] Address [facility] [place] [address] Care Team Providers Care Senior Mortgage Loan Processor Name Role Phone Van Alegre MD Primary Care Provider [phone] Samson Cruz MD Unavailable Encounter Details Date Type Department Care Team (Late st Contact Info) Description 09/16/2018 Abstract [facility] [address] [place] [id number] Abstract, Doc [facility] Social History Tobacco Use [...] Visit Diagnoses Diagnosis PAD (peripheral artery disease) Peripheral vascular disease, unspecified Claudication in peripheral vascular disease Peripheral vascular disease, unspecified Essential hypertension Unspecified essential hypertension documented in this encounter Care Teams Senior Mortgage Loan Processor Relationship Specialty Start Date End Date Van Alegre MD [address] [place] [address] PCP - General FAMILY PRACTICE 04/09/18 Samson Cruz MD [address] [place] [address] INTERNAL MEDICINE 04/09/18 documented as of this encounter
== END 2024-05-27 11:52 | disposition home or self-care (01) ==
PROVIDERS: PCP Family Medicine; Visit Provider Family Medicine
DX: J44.9 Chronic obstructive pulmonary disease, unspecified (principal); R94.2 Abnormal results of pulmonary function studies
CPT/HCPCS: 94060

== ENCOUNTER 2024-10-20 14:13 | Outpatient (RCR) | payer OTHER, SELFPAY | END 2025-01-18 23:59 | disposition home or self-care (01) | LOC: CHSAUDIO 14:13 | PROVIDERS: PCP Family Medicine; Visit Provider Family Medicine | DX: Z46.1 Encounter for fitting and adjustment of hearing aid (principal) | CPT/HCPCS: 99199 ==

== ENCOUNTER 2025-01-19 12:56 | Outpatient (CLI) | payer OTHER, SELFPAY | END 2025-01-19 12:57 | disposition home or self-care (01) | LOC: CHSAUDIO 12:59 | PROVIDERS: PCP Family Medicine; Visit Provider Family Medicine | DX: H91.90 Unspecified hearing loss, unspecified ear (principal); Z46.1 Encounter for fitting and adjustment of hearing aid | CPT/HCPCS: 99199 ==